=== PATIENT | female | born 1985 | race American Indian/Alaskan Native ===

== ENCOUNTER 2018-02-17 11:05 | Emergency (ER) | payer SELFPAY ==
[2018-02-17 11:16] VITALS: BP 106/68
[2018-02-17] MEDS ORDERED: NACL 0.9% 1000 ML 1,000 ML IV ONE (11:16)
[2018-02-17 11:59] LABS: Alanine Aminotransferase 11 units/L (7-56); Albumin 4.5 g/dL (3.9-5); BUN/Creatinine Ratio 13; Blood Urea Nitrogen 10 mg/dL (7-17); Calcium 9.9 mg/dL (8.4-10.2); Hemolysis Index 5
[2018-02-17 12:02] LABS: Basophils % (Auto) 0.5 % (0.0-1.8); Eosinophils # (Auto) 0.1 K/mm3 (0.0-0.4); Eosinophils % (Auto) 0.9 % (0.0-4.3); Hematocrit 43.9 % (30.3-42.9); Hemoglobin 14.6 gm/dl (10.1-14.3); Lymphocytes # (Auto) 1.5 K/mm3 (1.2-5.4); Lymphocytes % (Auto) 20.5 % (13.4-35.0); Mean Corpuscular HGB Conc 33 % (30-34); Mean Corpuscular Hemoglobin 28 pg (28-32); Mean Corpuscular Volume 84 fl (79-97); Monocytes # (Auto) 0.5 K/mm3 (0.0-0.8); Monocytes % (Auto) 7.4 % (0.0-7.3); Platelet Count 176 K/mm3 (140-440); Red Blood Count 5.22 M/mm3 (3.65-5.03); Red Cell Distribution Width 14.4 % (13.2-15.2)
[2018-02-17 12:23] LABS: Bacteria,Urine 1+ /HPF (Negative); Bilirubin,Urine NEG (Negative); Blood,Urine NEG (Negative); Color,Urine Yellow (Yellow); Mucus,Urine 3+ /HPF; Urobilinogen,Urine < 2.0 mg/dL (<2.0)
--- NOTE | 2018-02-17 14:05 | Emergency Department Report ---
ED Abdominal Pain HPI - General Chief Complaint: Abdominal Pain Stated Complaint: STOMACH PAIN/BOWEL PAIN Time Seen by Provider: 02/17/18 13:41 Source: patient Mode of arrival: Ambulatory Limitations: No Limitations - History of Present Illness Initial Comments: Patient reports lower abdominal and rectum pain with itching that started one week ago. She admits to having constipation in the past. MD Complaint: abdominal pain Onset/Timin -: week(s) Location: suprapubic Radiation: none Migration to: no migration Severity: moderate Severity scale (0 -10): 6 Quality: stabbing Consistency: intermittent Improves With: nothing Worsens With: bowel movement Context: other (none) Associated Symptoms: constipation. denies: nausea, vomiting, diarrhea, fever, chills, dysuria, hematemesis, hematochezia, melena, hematuria, anorexia, syncope Treatments Prior to Arrival: other (none) - Related Data LMP Date: 01/15/17 Previous Rx's Medication Instructions Recorded Last Taken Type Nitrofurantoin [place]/M-Cryst 100 mg PO Q12HR #14 capsule 02/17/18 Unknown Rx [Macrobid CAP] Vit-Fe Fumar-FA [ 1 tab PO QDAY #30 tablet 02/17/18 Unknown Rx Vitamin] Allergies Allergy/AdvReac Type Severity Reaction Status Date / Time No Known Allergies Allergy Unverified 02/17/18 11:15 ED Review of Systems ROS: Stated complaint: STOMACH PAIN/BOWEL PAIN Other details as noted in HPI Constitutional: denies: chills, fever Eyes: denies: eye pain, eye discharge, vision change ENT: denies: ear pain, throat pain Respiratory: denies: cough, shortness of breath, wheezing Cardiovascular: denies: chest pain, palpitations Endocrine: no symptoms reported Gastrointestinal: abdominal pain, constipation. denies: nausea, vomiting, diarrhea, hematemesis, melena Genitourinary: denies: urgency, dysuria, discharge Musculoskeletal: denies: back pain, joint swelling, arthralgia Skin: denies: rash, lesions Neurological: denies: headache, weakness, paresthesias Psychiatric: denies: anxiety, depression Hematological/Lymphatic: denies: easy bleeding, easy bruising ED Past Medical Hx - Past Medical History Previous Medical History?: No - Surgical History Past Surgical History?: No - Social History Smoking Status: Never Smoker Substance Use Type: None - Medications Home Medications: Home Medications Medication Instructions Recorded Confirmed Last Taken Type Nitrofurantoin [place]/M-Cryst 100 mg PO Q12HR #14 capsule 02/17/18 Unknown Rx [Macrobid CAP] Vit-Fe Fumar-FA [ 1 tab PO QDAY #30 tablet 02/17/18 Unknown Rx Vitamin] ED Physical Exam - General Limitations: No Limitations General appearance: alert, in no apparent distress - ENT ENT exam: Present: normal exam, normal orophraynx, mucous membranes moist. Absent: mucous membranes dry - Respiratory Respiratory exam: Present: normal lung sounds bilaterally. Absent: respiratory distress, wheezes, rales, rhonchi, stridor, chest wall tenderness, accessory muscle use, decreased breath sounds, prolonged expiratory - Cardiovascular Cardiovascular Exam: Present: regular rate, normal rhythm, normal heart sounds. Absent: systolic murmur, diastolic murmur, rubs, gallop - GI/Abdominal GI/Abdominal exam: Present: soft, tenderness (suprapubic), normal bowel sounds. Absent: distended, guarding, rebound, rigid, diminished bowel sounds, hyperactive bowel sounds, hypoactive bowel sounds, organomegaly, mass, bruit, pulsatile mass, hernia - Extremities Exam Extremities exam: Present: normal inspection, full ROM, normal capillary refill. Absent: tenderness, pedal edema, joint swelling - Back Exam Back exam: Present: normal inspection, full ROM. Absent: tenderness, CVA tenderness (R), CVA tenderness (L), muscle spasm, paraspinal tenderness, vertebral tenderness - Neurological Exam Neurological exam: Present: alert, oriented X3, CN II-XII intact, normal gait, reflexes normal. Absent: motor sensory deficit - Psychiatric Psychiatric exam: Present: normal affect, normal mood - Skin Skin exam: Present: warm, dry, intact, normal color. Absent: rash ED Course Vital Signs 02/17/18 02/17/18 11:12 13:48 Temperature 98.2 F Pulse Rate 83 Respiratory 16 16 Rate Blood Pressure 106/68 O2 Sat by Pulse 100 Oximetry - Reevaluation(s) Reevaluation #1: 02/17/18 14:08 laboratory and radiology studies ordered ED Medical Decision Making - Lab Data Result diagrams: 02/17/18 11:28 02/17/18 11:28 Lab Results 02/17/18 02/17/1802/17/18 Range/Units 11:28 11:28 11:28 WBC 7.4 (4.5-11.0) K/mm3 RBC 5.22 H (3.65-5.03) M/mm3 Hgb 14.6 H (10.1-14.3) gm/dl Hct 43.9 H (30.3-42.9) % MCV 84 (79-97) fl MCH 28 (28-32) pg MCHC 33 (30-34) % RDW 14.4 (13.2-15.2) % Plt Count 176 (140-440) K/mm3 Lymph % (Auto) 20.5 (13.4-35.0) % [place] % (Auto) 7.4 H (0.0-7.3) % Eos % (Auto) 0.9 (0.0-4.3) % Baso % (Auto) 0.5 (0.0-1.8) % Lymph # 1.5 (1.2-5.4) K/mm3 [place] # 0.5 (0.0-0.8) K/mm3 Eos # 0.1 (0.0-0.4) K/mm3 Baso # 0.0 (0.0-0.1) K/mm3 Seg Neutrophils % 70.7 H (40.0-70.0) % Seg Neutrophils # 5.2 (1.8-7.7) K/mm3 Sodium 139 (137-145) mmol/L Potassium 3.7 (3.6-5.0) mmol/L Chloride 99.1 (98-107) mmol/L Carbon Dioxide 27 (22-30) mmol/L Anion Gap 17 mmol/L BUN 10 (7-17) mg/dL Creatinine 0.8 (0.7-1.2) mg/dL Estimated GFR > 60 ml/min BUN/Creatinine Ratio 13 % Glucose 102 H (65-100) mg/dL Calcium 9.9 (8.4-10.2) mg/dL Total Bilirubin 0.50 (0.1-1.2) mg/dL AST 17 (5-40) units/L ALT 11 (7-56) units/L Alkaline Phosphatase 38 (35-129) units/L Total Protein 7.8 (6.3-8.2) g/dL Albumin 4.5 (3.9-5) g/dL Albumin/Globulin Ratio 1.4 % HCG, Qual Positive (Negative) HCG, Quant (0-4) mIU/mL Urine Color (Yellow) Urine Turbidity (Clear) Urine pH (5.0-7.0) Ur Specific [place] (1.003-1.030) Urine Protein (Negative) mg/dL Urine Glucose (UA) (Negative) mg/dL Urine Ketones (Negative) mg/dL Urine Blood (Negative) Urine Nitrite (Negative) Urine Bilirubin (Negative) Urine Urobilinogen (<2.0) mg/dL Ur Leukocyte Esterase (Negative) Urine WBC (Auto) (0.0-6.0) /HPF Urine RBC (Auto) (0.0-6.0) /HPF U Epithel Cells (Auto) (0-13.0) /HPF Urine Bacteria (Auto) (Negative) /HPF Urine Mucus /HPF 02/17/18 02/17/18 Range/Units 12:05 15:47 WBC (4.5-11.0) K/mm3 RBC (3.65-5.03) M/mm3 Hgb (10.1-14.3) gm/dl Hct (30.3-42.9) % MCV (79-97) fl MCH (28-32) pg MCHC (30-34) % RDW (13.2-15.2) % Plt Count (140-440) K/mm3 Lymph % (Auto) (13.4-35.0) % [place]ner % (Auto) (0.0-7.3) % Eos % (Auto) (0.0-4.3) % Baso % (Auto) (0.0-1.8) % Lymph # (1.2-5.4) K/mm3 [place] # (0.0-0.8) K/mm3 Eos # (0.0-0.4) K/mm3 Baso # (0.0-0.1) K/mm3 Seg Neutrophils % (40.0-70.0) % Seg Neutrophils # (1.8-7.7) K/mm3 Sodium (137-145) mmol/L Potassium (3.6-5.0) mmol/L Chloride (98-107) mmol/L Carbon Dioxide (22-30) mmol/L Anion Gap mmol/L BUN (7-17) mg/dL Creatinine (0.7-1.2) mg/dL Estimated GFR ml/min BUN/Creatinine Ratio % Glucose (65-100) mg/dL Calcium (8.4-10.2) mg/dL Total Bilirubin (0.1-1.2) mg/dL AST (5-40) units/L ALT (7-56) units/L Alkaline Phosphatase (35-129) units/L Total Protein (6.3-8.2) g/dL Albumin (3.9-5) g/dL Albumin/Globulin Ratio % HCG, Qual (Negative) HCG, Quant 11901 H (0-4) mIU/mL Urine Color Yellow (Yellow) Urine Turbidity Cloudy (Clear) Urine pH 7.0 (5.0-7.0) Ur Specific [place] 1.026 (1.003-1.030) Urine Protein 30 mg/dl (Negative) mg/dL Urine Glucose (UA) Neg (Negative) mg/dL Urine Ketones Neg (Negative) mg/dL Urine Blood Neg (Negative) Urine Nitrite Neg (Negative) Urine Bilirubin Neg (Negative) Urine Urobilinogen < 2.0 (<2.0) mg/dL Ur Leukocyte Esterase Sm (Negative) Urine WBC (Auto) 11.0 H (0.0-6.0) /HPF Urine RBC (Auto) 7.0 (0.0-6.0) /HPF U Epithel Cells (Auto) 28.0 H (0-13.0) /HPF Urine Bacteria (Auto) 1+ (Negative) /HPF Urine Mucus 3+ /HPF - Radiology Data Radiology results: image reviewed HISTORY: Positive test, pelvic pain. COMPARISON: No prior studies are available for comparison. FINDINGS: The uterus measures 10.3 centimeters x 5.3 centimeters x 6.3 centimeters. The myometrium appears homogeneous. There are no focal uterine masses. There is thickening of the endometrial echo complex. There is a small gestational sac visible in the uterine fundus. There is no definite pole. The mean gestational sac diameter is 1.13 centimeters. This indicates a menstrual age of 5 weeks 6 days. The estimated date of confinement is 10/14/2018. The right ovary appears normal in size and has normal color flow. The left ovary appears normal in size and has normal color flow. There are 2 cysts in the left ovary. The largest cyst has a maximum diameter of 2.5 centimeters. IMPRESSION: Early intrauterine gestational sac. No definite pole identified. HISTORY: Abdominal pain. COMPARISON: No prior studies are available for comparison. FINDINGS: The liver has uniform echogenicity. There are no focal masses. There is no biliary dilatation. The common hepatic duct measures 1.1 millimeters. The gallbladder is adequately distended with normal wall thickness. There are no gallstones. The pancreas appears normal. Both kidneys appear normal in size and have normal echogenicity. There is no hydronephrosis. The spleen is unremarkable. The proximal portion of the abdominal aorta has a normal caliber. The more distal portions were not visualized. The inferior vena cava is patent. The portal vein is patent by color flow imaging. IMPRESSION: Normal study. - Medical Decision Making During the course of ED, laboratory and imaging studies were ordered based on physical examination. Positive test, was confirmed by pelvic ultrasound early intrauterine gestational sac and quantitative 57923. No definite pole identified. Urinalysis revealed an elevated WBC with no nitrates present. Patient was sent home with prescriptions for Macrobid and vitamins, instructed to follow up with the selective Business Intelligence Manager for repeated ultrasound in approximately two weeks, she verbalized understanding - Differential Diagnosis IUP @ 5weeks, UTI Critical care attestation.: If time is entered above; I have spent that time in minutes in the direct care of this critically ill patient, excluding procedure time. ED Disposition Clinical Impression: Qualifiers: Weeks of gestation: less than 8 weeks Qualified Code(s): Z3A.01 - Less than 8 weeks gestation of Urinary tract infection Qualifiers: Urinary tract infection type: site unspecified Hematuria presence: without hematuria Qualified Code(s): N39.0 - Urinary tract infection, site not specified Disposition: DC-01 TO HOME OR SELFCARE Is pt being admited?: No Does the pt Need Aspirin: No Condition: Stable Instructions: (ED), Urinary Tract Infection in Women (ED) Additional Instructions: Take medication as directed. Follow up with the selective referral given at discharge. Return back to the ED for worsening symptoms or concerns Prescriptions: Nitrofurantoin [place]/M-Cryst [Macrobid CAP] 100 mg PO Q12HR #14 capsule Vit-Fe Fumar-FA [ Vitamin] 1 tab PO QDAY #30 tablet Referrals: PRIMARY CARE, [Primary Care Provider] - 3-5 Days TADEO DAY MD [Referring] - 3-5 Days YULIA DAY MD [Staff Physician] - 3-5 Days Forms: Work/School Release Form(ED) Time of Disposition: 17:02
--- NOTE | 2018-02-17 16:41 | Ultrasound Report ---
FINAL REPORT PROCEDURE: Abdominal ultrasound. TECHNIQUE: Real-time sonography in multiple planes of the abdomen was performed with image documentation. CPT 95104 HISTORY: Abdominal pain. COMPARISON: No prior studies are available for comparison. FINDINGS: The liver has uniform echogenicity. There are no focal masses. There is no biliary dilatation. The common hepatic duct measures 1.1 millimeters. The gallbladder is adequately distended with normal wall thickness. There are no gallstones. The pancreas appears normal. Both kidneys appear normal in size and have normal echogenicity. There is no hydronephrosis. The spleen is unremarkable. The proximal portion of the abdominal aorta has a normal caliber. The more distal portions were not visualized. The inferior vena cava is patent. The portal vein is patent by color flow imaging. IMPRESSION: Normal study.
--- NOTE | 2018-02-17 16:48 | Ultrasound Report ---
FINAL REPORT PROCEDURE: Transvaginal obstetrical ultrasound. TECHNIQUE: Real-time transvaginal sonography of the uterus, placenta, amniotic fluid, adnexa, and fetus was performed with image documentation. Measurements were obtained to determine age/size. M-mode Doppler was used to document heartbeat. CPT 57845 HISTORY: Positive test, pelvic pain. COMPARISON: No prior studies are available for comparison. FINDINGS: The uterus measures 10.3 centimeters x 5.3 centimeters x 6.3 centimeters. The myometrium appears homogeneous. There are no focal uterine masses. There is thickening of the endometrial echo complex. There is a small gestational sac visible in the uterine fundus. There is no definite pole. The mean gestational sac diameter is 1.13 centimeters. This indicates a menstrual age of 5 weeks 6 days. The estimated date of confinement is 10/14/2018. The right ovary appears normal in size and has normal color flow. The left ovary appears normal in size and has normal color flow. There are 2 cysts in the left ovary. The largest cyst has a maximum diameter of 2.5 centimeters. IMPRESSION: Early intrauterine gestational sac. No definite pole identified.
--- NOTE | 2018-02-17 16:48 | Ultrasound Report ---
FINAL REPORT PROCEDURE: Transabdominal obstetrical ultrasound. TECHNIQUE: Real-time transabdominal sonography of the uterus, placenta, amniotic fluid, adnexa, and fetus was performed with image documentation. Measurements were obtained to determine age/size. M-mode Doppler was used to document heartbeat. CPT 03122 HISTORY: Positive test, pelvic pain. COMPARISON: No prior studies are available for comparison. FINDINGS: The uterus measures 10.3 centimeters x 5.3 centimeters x 6.3 centimeters. The myometrium appears uniform. The endometrial echo complex is unremarkable. There is a small intrauterine gestational sac. A pole is not definitely visualized. Neither ovary is identified. Further evaluation with a transvaginal study would be useful. IMPRESSION: Early intrauterine gestational sac.
== END 2018-02-17 17:18 | disposition home or self-care (01) ==
LOC: ED 11:05
DX: O23.41 Unspecified infection of urinary tract in pregnancy, first trimester (principal); Z3A.01 Less than 8 weeks gestation of pregnancy
CPT/HCPCS: 36415; 76700; 76801; 76817; 80053; 81001; 84702; 84703; 85025

== ENCOUNTER 2018-10-04 14:43 | Outpatient (CLI) | payer MEDICAID ==
[2018-10-04 14:57] VITALS: BP 103/65
[2018-10-04 17:12] LABS: Bilirubin,Urine NEG (Negative); Blood,Urine NEG (Negative); Color,Urine Yellow (Yellow); Mucus,Urine FEW /HPF; Protein,Urine <15 mg/dL mg/dL (Negative); Urobilinogen,Urine < 2.0 mg/dL (<2.0)
== END 2018-10-04 20:15 | disposition home or self-care (01) ==
LOC: TRG 14:43
PROVIDERS: ATTEND Obstetrics & Gynecology
DX: O47.1 False labor at or after 37 completed weeks of gestation (principal); Z3A.38 38 weeks gestation of pregnancy
CPT/HCPCS: 59025; 81001

== ENCOUNTER 2018-10-09 00:26 | Inpatient (IN) | payer MEDICAID ==
[2018-10-09] MEDS ORDERED: PITOCin/NS 20 UNIT/1000ML DRIP 20,000 MILLIUNITS/1,000 ML BAG IV ONE (01:56)
--- NOTE | 2018-10-09 02:16 | History and Physical Report ---
History of Present Illness Date of examination: 10/09/18 Date of admission: 10/09/18 00:33 Chief complaint: contractions History of present illness: 33y/o @ 39+3 weeks presents in active labor with gross rupture membranes. The patient initiated her care in the first trimester. Her course has been uncomplicated. The patient is GBS negative. Past History Past Medical History: no pertinent history Past Surgical History: no surgical history Social history: single - Obstetrical History Expected Date of Delivery: 10/13/18 Actual Gestation: 39 Week(s) 3 Day(s) : 2 Para: 1 Hx # Term Pregnancies: 1 Number of Pregnancies: 0 Spontaneous Abortions: 0 Induced : 0 Number of Living Children: 1 Medications and Allergies Allergies Allergy/AdvReac Type Severity Reaction Status Date / Time No Known Allergies Allergy Verified 04/11/18 15:38 Home Medications Medication Instructions Recorded Confirmed Last Taken Type Nitrofurantoin [place]/M-Cryst 100 mg PO Q12HR #14 capsule 02/17/18 Unknown Rx [Macrobid CAP] Vit-Fe Fumar-FA [ 1 tab PO QDAY #30 tablet 02/17/18 Unknown Rx Vitamin] Review of Systems All systems: negative Genitourinary: leakage of fluid, contractions - Vital Signs Vital signs: Vital Signs Pulse BP 80 102/53 10/09/18 01:03 10/09/18 01:03 Temp Pulse Resp BP Pulse Ox 85 113/59 10/09/18 02:06 10/09/18 02:06 - Physical Exam Breasts: Positive: deferred Cardiovascular: Regular rate Lungs: Positive: Clear to auscultation Results All other labs normal. Assessment and Plan - Patient Problems (1) Spontaneous rupture of amniotic membranes Current Visit: Yes Status: Acute Plan to address problem: admit to L&D (2) Active labor at term Current Visit: Yes Status: Acute
[2018-10-09] MEDS ORDERED: BENADRYL PO PRN (02:43)
[2018-10-09] MEDS ORDERED: PHENERGAN PO PRN (02:43)
[2018-10-09] MEDS ORDERED: MILK OF MAGNESIA PO PRN (02:43)
[2018-10-09] MEDS ORDERED: TUCKS PAD TP PRN (02:43)
[2018-10-09] MEDS ORDERED: DULCOLAX PR PRN (02:43)
[2018-10-09] MEDS ORDERED: NORCO 5/325 PO PRN (02:43)
[2018-10-09] MEDS ORDERED: PHENERGAN PR PRN (02:43)
[2018-10-09] MEDS ORDERED: ZOFRAN IV PRN (02:43)
[2018-10-09] MEDS ORDERED: LANSINOH TP PRN (02:43)
[2018-10-09] MEDS ORDERED: TYLENOL PO PRN (02:43)
--- NOTE | 2018-10-09 02:43 | Procedure Note ---
OB Delivery Note - Delivery Date of Delivery: 10/09/18 Surgeon: ISABELLA CHRISTINA Estimated blood loss: 100cc - Vaginal Delivery presentation: vertex Delivery position: OA Delivery monitor: external FHT Route of delivery: Delivery placenta: spontaneous Delivery cord: 3 umbilical vessels Episiotomy: none Delivery laceration: none Anesthesia: epidural Delivery comments: The patient progressed to complete complete +2+ to deliver a liveborn male with Apgars of 8 and 9 weight 5 lbs. 15 oz. After delivery of the head and shoulders delivered without difficulty. The infant was then bulb suctioned and stimulated. The cord was clamped and cut 2 and the was placed on the patient's abdomen. The placenta delivered spontaneously intact with a three-vessel cord. No lacerations were noted. Estimated blood loss of 100 mL - A at 1 minute: 8 at 5 minutes: 9 Infant Gender: Male (weight 5 lbs. 15 oz.)
[2018-10-09] MEDS ORDERED: SODIUM CHLORIDE FLUSH SYRINGE 10 ML IV NR (03:00)
[2018-10-09] MEDS: IBUPROFEN PO SCH ×3 (04:01→17:06)
[2018-10-09 04:08] LABS: Hematocrit 37.9 % (30.3-42.9); Hemoglobin 12.2 gm/dl (10.1-14.3)
[2018-10-09] MEDS ORDERED: PITOCin/NS 20 UNIT/1000ML DRIP 20 UNITS/1,000 ML BAG IV SCH (06:00)
[2018-10-09 13:12] LABS: Hematocrit 35.5 % (30.3-42.9); Hemoglobin 11.5 gm/dl (10.1-14.3)
[2018-10-10] MEDS: IBUPROFEN PO SCH ×3 (07:26→23:21)
--- NOTE | 2018-10-10 08:28 | Progress Note ---
Assessment and Plan A: PPD#1 s/p at term P: Routine care. Anticipate discharge tomorrow. Subjective - Subjective Date of service: 10/10/18 Principal diagnosis: s/p at term Interval history: No overnight events. Patient reports: appetite normal, voiding normally, pain well controlled, ambulating normally [place]: doing well Objective - Vital Signs Latest vital signs: Vital Signs Temp Pulse Resp BP BP Pulse Ox 10/10/18 07:26 14 10/10/18 00:54 98.6 F 75 18 101/58 99 10/09/18 17:06 14 10/09/18 16:38 98.9 F 76 20 101/55 98 10/09/18 12:11 98.0 F 74 20 97/49 97 10/09/18 08:35 98.4 F 71 20 96/54 Intake and Output 10/09/18 10/10/18 10/10/18 22:59 06:59 14:59 Intake Total 320 300 Balance 320 300 Intake: Oral 320 Intake, Free Water 300 Other: Total, Intake Amount 320 # Voids Void 1 - Exam Breasts: Present: deferred Cardiovascular: Present: Regular rate Lungs: Present: Clear to auscultation Abdomen: Present: soft Uterus: Present: fundal height at umbilicus Extremities: Present: edema (trace)
--- NOTE | 2018-10-10 08:29 | Discharge Summary ---
Providers - Providers Date of Admission: 10/09/18 00:33 Date of discharge: 10/11/18 Attending physician: ISABELLA CHRISTNIA Primary care physician: ISABELLA CHRISTINA Hospitalization Reason for admission: rupture of membranes Delivery: Procedure details: Please see delivery note. Episiotomy: none Laceration: none Other procedures: none complications: none Discharge diagnosis: IUP at term delivered Mathews baby: male Hospital course: The patient was admitted with ruptured membranes in active labor and went on to have a spontaneous vaginal delivery which she tolerated well. Her course is uncomplicated and she met discharge criteria by day #2. She'll follow-up in the office in 4 weeks. Condition at discharge: Stable Disposition: DC-01 TO HOME OR SELFCARE - Discharge Diagnoses (1) Term of male Status: Acute (2) Active labor at term Status: Acute (3) Spontaneous rupture of amniotic membranes Status: Acute Plan - Discharge Medications Prescriptions: Ferrous Sulfate [Feosol 325 MG tab] 325 mg PO BID #30 tablet Ibuprofen [Motrin] 600 mg PO Q8H PRN #30 tablet PRN Reason: Pain oxyCODONE /ACETAMINOPHEN [Percocet 5/325] 1 tab PO Q6HR PRN #30 tablet PRN Reason: Pain - Provider Discharge Summary Activity: routine, no sex for 6 weeks, no heavy lifting 4 weeks, no strenuous exercise Diet: routine Instructions: routine Additional instructions: [] Smoking cessation referral if applicable(refer to patient education folder for contact #) [] Refer to [facility]'s [facility] Booklet Call your doctor immediately for: * Fever > 100.5 * Heavy vaginal bleeding ( >1 pad per hour) * Severe persistent headache * Shortness of breath * Reddened, hot, painful area to leg or breast * Drainage or odor from incision. * Keep incision clean and dry at all times and follow doctor's instructions regarding bathing/showering - Follow up plan Follow up: ISABELLA CHRISTINA MD [Primary Care Provider] - 11/10/18 (Please call to schedule your appt )
[2018-10-11] MEDS: IBUPROFEN PO SCH ×2 (05:54→12:33)
[2018-10-11 16:04] VITALS: BP 101/66
== END 2018-10-11 16:25 | disposition home or self-care (01) | DRG 775 ==
LOC: TRG 00:26 → LD 00:33 → OB 05:22
PROVIDERS: ADMIT Obstetrics & Gynecology; ATTEND Obstetrics & Gynecology
PROC: 10E0XZZ Delivery of Products of Conception, External Approach (ICD-10-PCS; principal; 2018-10-09)
PROC: 3E0R3BZ Introduction of Anesthetic Agent into Spinal Canal, Percutaneous Approach (ICD-10-PCS; 2018-10-09)
PROC: 00HU33Z Insertion of Infusion Device into Spinal Canal, Percutaneous Approach (ICD-10-PCS; 2018-10-09)
DX: O80 Encounter for full-term uncomplicated delivery (principal); Z3A.39 39 weeks gestation of pregnancy; Z37.0 Single live birth
CPT/HCPCS: 36415; 85014; 85018; G0378; J2590

== ENCOUNTER 2020-08-04 10:21 | Emergency (ER) | payer MEDICAID ==
--- NOTE | 2020-08-04 10:29 | Event Note ---
ED Screening Note ED Screening Note: LMP 04/22 vag bleeding; known preg passing large clots ob told her to come to ER This initial assessment/diagnostic orders/clinical plan/treatment(s) is/are subject to change based on patients health status, clinical progression and re- assessment by fellow clinical providers in the ED. Further treatment and workup at subsequent clinical providers discretion. Patient/guardian urged not to elope from the ED as their condition may be serious if not clinically assessed and managed. Initial orders include: teresa ab
[2020-08-04 11:10] LABS: Basophils % (Auto) 0.4 % (0.0-1.8); Eosinophils # (Auto) 0.1 K/mm3 (0.0-0.4); Eosinophils % (Auto) 1.1 % (0.0-4.3); Hematocrit 35.2 % (30.3-42.9); Hemoglobin 11.6 gm/dl (10.1-14.3); Lymphocytes % (Auto) 18.7 % (13.4-35.0); Mean Corpuscular HGB Conc 33 % (30-34); Mean Corpuscular Volume 87 fl (79-97); Monocytes # (Auto) 0.8 K/mm3 (0.0-0.8); Monocytes % (Auto) 7.5 % (0.0-7.3); Platelet Count 199 K/mm3 (140-440); Red Blood Count 4.04 M/mm3 (3.65-5.03); Red Cell Distribution Width 13.5 % (13.2-15.2)
[2020-08-04 11:37] LABS: Blood Urea Nitrogen 10 mg/dL (7-17); Calcium 8.6 mg/dL (8.4-10.2); Hemolysis Index 1
[2020-08-04] MEDS ORDERED: POTASSIUM CHLORIDE ER 20 MEQ TAB PO ONE (11:38)
[2020-08-04] MEDS ORDERED: traMADol 50 MG TAB PO ONE (11:39)
[2020-08-04 11:45] LABS: BUN/Creatinine Ratio 14
[2020-08-04 12:15] LABS: Mucus,Urine 1+ /HPF; RBC,Urine > 182.0 /HPF (0.0-6.0)
[2020-08-04 12:16] LABS: Color,Urine Red (Yellow); PH,Urine TNR (5.0-7.0)
[2020-08-04 12:17] LABS: Ictotest,Urine TNR (Negative); Protein,Urine TNR mg/dL (Negative); Urobilinogen,Urine TNR mg/dL (<2.0)
--- NOTE | 2020-08-04 13:03 | Ultrasound Report ---
US OB <= 14 weeks fetus, US OB transvaginal INDICATION / CLINICAL INFORMATION: Vaginal bleeding. COMPARISON: None available. FINDINGS: No evidence of normal intrauterine . Endometrial canal is thickened in the lower uterine seg ment and cervix, measuring as much as 3.2 cm diameter. Endometrial stripe in the uterine fundus measu res only 7 mm. Both ovaries are normal. No abnormal adnexal mass or fluid. IMPRESSION: 1. Findings suggest demise and incomplete . Signer Name: Blaine Rangel MD Signed: 08/04/2020 12:58 PM Workstation Name: [id number]
--- NOTE | 2020-08-04 16:31 | Emergency Department Report ---
ED HPI - General Chief complaint: Vaginal Bleeding Stated complaint: VAGINAL BLEED Time Seen by Provider: 08/04/20 10:26 Source: patient Mode of arrival: Wheelchair Limitations: No Limitations - History of Present Illness Initial comments: 35-year-old female, 13 weeks , presents to ED with vaginal bleeding. Patient states 3 days ago she began to have light vaginal bleeding. 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 Ultrasound was done at that time which showed an IUP, however there were no heart tones detected. Patient was advised to come to the emergency room if she began to have heavier vaginal bleeding. Patient states last night, the bleeding became heavier, with clots, and cramping. [facility], Dr. Elaina POTTS Complaint: abdominal pain, vaginal bleeding -: days(s) (3) Location: pelvis Radiation: none Severity: severe Quality: cramping Consistency: constant Improves with: none Worsens with: none Associated symptoms: vaginal bleeding, abdominal pain Vaginal bleeding: heavy, clots :: Yes Number of weeks : 13 Pre- care: followed by OB - Related Data Previous Rx's Medication Instructions Recorded Last Taken Type Nitrofurantoin [place]/M-Cryst 100 mg PO Q12HR #14 capsule 02/17/18 Unknown Rx [Macrobid CAP] Vit-Fe Fumar-FA [ 1 tab PO QDAY #30 tablet 02/17/18 Unknown Rx Vitamin] Ferrous Sulfate [Feosol 325 MG tab] 325 mg PO BID #30 tablet 10/09/18 Unknown Rx Ibuprofen [Motrin] 600 mg PO Q8H PRN #30 tablet 10/09/18 Unknown Rx oxyCODONE /ACETAMINOPHEN [Percocet 1 tab PO Q6HR PRN #30 tablet 10/09/18 Unknown Rx 5/325] Allergies Allergy/AdvReac Type Severity Reaction Status Date / Time No Known Allergies Allergy Verified 04/11/18 15:38 ED Review of Systems ROS: Stated complaint: VAGINAL BLEED Other details as noted in HPI Comment: All other systems reviewed and negative Gastrointestinal: abdominal pain Genitourinary: other (Reports vaginal bleeding) ED Past Medical Hx - Past Medical History Hx Hypertension: No Hx Congestive Heart Failure: No Hx Diabetes: No Hx Deep Vein Thrombosis: No Hx Renal Disease: No Hx Sickle Cell Disease: No Hx Seizures: No Hx Asthma: No Hx COPD: No Hx HIV: No - Surgical History Past Surgical History?: No - Social History Smoking Status: Never Smoker - Medications Home Medications: Home Medications Medication Instructions Recorded Confirmed Last Taken Type Nitrofurantoin [place]/M-Cryst 100 mg PO Q12HR #14 capsule 02/17/18 10/11/18 Unknown Rx [Macrobid CAP] Vit-Fe Fumar-FA [ 1 tab PO QDAY #30 tablet 02/17/18 10/11/18 Unknown Rx Vitamin] Ferrous Sulfate [Feosol 325 MG tab] 325 mg PO BID #30 tablet 10/09/18 Unknown Rx Ibuprofen [Motrin] 600 mg PO Q8H PRN #30 tablet 10/09/18 Unknown Rx oxyCODONE /ACETAMINOPHEN [Percocet 1 tab PO Q6HR PRN #30 tablet 10/09/18 Unknown Rx 5/325] ED Physical Exam - General Limitations: No Limitations General appearance: alert, in no apparent distress - Head Head exam: Present: atraumatic, normocephalic - Eye Eye exam: Present: normal appearance, EOMI - ENT ENT exam: Present: mucous membranes moist - Neck Neck exam: Present: normal inspection - Respiratory Respiratory exam: Present: normal lung sounds bilaterally. Absent: respiratory distress - Cardiovascular Cardiovascular Exam: Present: regular rate, normal rhythm - GI/Abdominal GI/Abdominal exam: Present: soft, tenderness (Mild suprapubic). Absent: distended - Extremities Exam Extremities exam: Present: normal inspection - Neurological Exam Neurological exam: Present: alert, oriented X3 - Psychiatric Psychiatric exam: Present: normal affect, normal mood - Skin Skin exam: Present: warm, dry, intact, normal color ED Course Vital Signs 08/04/20 08/04/20 08/04/20 10:27 10:28 15:33 Temperature 98.6 F 98.1 F Pulse Rate 112 H 87 Respiratory 18 13 Rate Blood Pressure 151/77 Blood Pressure 100/62 [Left] O2 Sat by Pulse 99 100 Oximetry 08/04/20 08/04/20 16:49 18:51 Temperature Pulse Rate 85 84 Respiratory 16 15 Rate Blood Pressure Blood Pressure 103/57 103/64 [Left] O2 Sat by Pulse 100 100 Oximetry - Consultations Consultation #1: 08/04/20 17:12 Discussed case w/ Dr Rader, on-call OB. States pt needs to f/u in office tomorrow. ED Medical Decision Making - Lab Data Result diagrams: 08/04/20 10:37 08/04/20 10:37 - Radiology Data Radiology results: report reviewed, image reviewed - Medical Decision Making 35-year-old female seen at the doctor's office on yesterday and diagnosed with demise. Patient began having heavy vaginal bleeding and cramping last night. Ultrasound here shows no IUP. Hemoglobin is 11.6. Vital signs are stable. Blood pressure low normal, however body habitus is small and patient is not tachycardic. Patient advised to follow-up with her [employer]ES[employer] PERFOR[employer] OPERATOR in office tomorrow. Return precautions given. Will discharge at this time. - Differential Diagnosis Miscarriage Critical care attestation.: If time is entered above; I have spent that time in minutes in the direct care of this critically ill patient, excluding procedure time. ED Disposition Clinical Impression: Spontaneous miscarriage Disposition: DC-01 TO HOME OR SELFCARE Is pt being admited?: No Condition: Stable Instructions: Miscarriage, [id number] Additional Instructions: Follow up with your TYPESETTER PERFORATOR OPERATOR tomorrow. Referrals: PRIMARY CARE, [Primary Care Provider] - 24 Hours Time of Disposition: 18:44
[2020-08-04] MEDS ORDERED: SODIUM CHLORIDE 0.9% 1000 ML 1,000 ML IV ONE (16:48)
[2020-08-04 18:52] VITALS: BP 103/64
== END 2020-08-04 18:53 | disposition home or self-care (01) ==
LOC: ED 10:21
DX: O03.9 Complete or unspecified spontaneous abortion without complication (principal); Z3A.13 13 weeks gestation of pregnancy; Z79.1 Long term (current) use of non-steroidal anti-inflammatories (NSAID); Z79.899 Other long term (current) drug therapy
CPT/HCPCS: 36415; 76801; 76817; 80048; 81001; 84702; 85025; 86900; 86901; 87086; 96360; 96361

== ENCOUNTER 2020-08-14 19:24 | Emergency (ER) | payer SELFPAY ==
[2020-08-14 19:47] VITALS: BP 124/83
[2020-08-14 20:39] LABS: Basophils % (Auto) 0.4 % (0.0-1.8); Eosinophils # (Auto) 0.1 K/mm3 (0.0-0.4); Eosinophils % (Auto) 0.8 % (0.0-4.3); Hematocrit 28.5 % (30.3-42.9); Hemoglobin 9.5 gm/dl (10.1-14.3); Lymphocytes % (Auto) 11.6 % (13.4-35.0); Mean Corpuscular HGB Conc 33 % (30-34); Mean Corpuscular Volume 85 fl (79-97); Monocytes # (Auto) 0.7 K/mm3 (0.0-0.8); Monocytes % (Auto) 8.5 % (0.0-7.3); Platelet Count 275 K/mm3 (140-440); Red Blood Count 3.35 M/mm3 (3.65-5.03); Red Cell Distribution Width 13.6 % (13.2-15.2)
--- NOTE | 2020-08-14 20:59 | XRay Report ---
XR chest routine 2V INDICATION / CLINICAL INFORMATION: chest pain. COMPARISON: None available. FINDINGS: SUPPORT DEVICES: None. HEART /PULMONARY VASCULATURE: No significant abnormality. LUNGS / PLEURA: No significant pulmonary or pleural abnormality. No pneumothorax. ADDITIONAL FINDINGS: No significant additional findings. IMPRESSION: 1. No acute findings. Signer Name: Zoran Moreno MD Signed: 08/14/2020 8:55 PM Workstation Name: [id number]
[2020-08-14 21:04] LABS: Alanine Aminotransferase 7 units/L (7-56); Albumin 4.3 g/dL (3.9-5); BUN/Creatinine Ratio 16; Blood Urea Nitrogen 13 mg/dL (7-17); Hemolysis Index 0
--- NOTE | 2020-08-14 21:33 | Emergency Department Report ---
ED General Adult HPI - General Chief complaint: Dizziness Stated complaint: CHEST PAIN, LIGHTHEADED, DIZZY, BLEEDING HEAVY Time Seen by Provider: 08/14/20 20:54 Source: patient Mode of arrival: Ambulatory Limitations: No Limitations - History of Present Illness Initial comments: 35-year-old -[place] female presents to the emergency room complaining of dizziness chest discomfort feeling hot and heavy bleeding. Patient was seen here on 08/04/2020 and was determined that she had a demise and incomplete . Patient states since then she has had heavy bleeding. Patient states that she saw an [facility]PERINTENDENT CEMETERY last Saturday. She is reports she has had some midsternal discomfort mild sharp pain. She had nausea when she was getting overheated but that has resolved. Patient is 3 para 2 no past medical history. Currently taking no medications. Patient states that she was having increased palpitation. -: This afternoon Location: chest Radiation: non-radiation Severity scale (0 -10): 0 Consistency: now resolved Improves with: none Worsens with: none Associated Symptoms: nausea/vomiting. denies: headaches, loss of appetite, shor tness of breath, weakness Treatments Prior to Arrival: none - Related Data Previous Rx's Medication Instructions Recorded Last Taken Type Nitrofurantoin [place]/M-Cryst 100 mg PO Q12HR #14 capsule 02/17/18 Unknown Rx [Macrobid CAP] Vit-Fe Fumar-FA [ 1 tab PO QDAY #30 tablet 02/17/18 Unknown Rx Vitamin] Ibuprofen [Motrin] 600 mg PO Q8H PRN #30 tablet 10/09/18 Unknown Rx oxyCODONE /ACETAMINOPHEN [Percocet 1 tab PO Q6HR PRN #30 tablet 10/09/18 Unknown Rx 5/325] Docusate Sodium [Colace] 100 mg PO BID PRN #30 capsule 08/14/20 Unknown Rx Ferrous Sulfate [Feosol 325 MG tab] 325 mg PO BID #30 tablet 08/14/20 Unknown Rx Allergies Allergy/AdvReac Type Severity Reaction Status Date / Time No Known Allergies Allergy Verified 04/11/18 15:38 ED Review of Systems ROS: Stated complaint: CHEST PAIN, LIGHTHEADED, DIZZY, BLEEDING HEAVY Other details as noted in HPI Comment: All other systems reviewed and negative ED Past Medical Hx - Past Medical History Previous Medical History?: Yes Hx Hypertension: No Hx Congestive Heart Failure: No Hx Diabetes: No Hx Deep Vein Thrombosis: No Hx Renal Disease: No Hx Sickle Cell Disease: No Hx Seizures: No Hx Asthma: No Hx COPD: No Hx HIV: No Additional medical history: Miscarriage at 13 weeks on 08/03/20 - Surgical History Past Surgical History?: No - Social History Smoking Status: Never Smoker - Medications Home Medications: Home Medications Medication Instructions Recorded Confirmed Last Taken Type Nitrofurantoin [place]/M-Cryst 100 mg PO Q12HR #14 capsule 02/17/18 10/11/18 Unknown Rx [Macrobid CAP] Vit-Fe Fumar-FA [ 1 tab PO QDAY #30 tablet 02/17/18 10/11/18 Unknown Rx Vitamin] Ibuprofen [Motrin] 600 mg PO Q8H PRN #30 tablet 10/09/18 Unknown Rx oxyCODONE /ACETAMINOPHEN [Percocet 1 tab PO Q6HR PRN #30 tablet 10/09/18 Unknown Rx 5/325] Docusate Sodium [Colace] 100 mg PO BID PRN #30 capsule 08/14/20 Unknown Rx Ferrous Sulfate [Feosol 325 MG tab] 325 mg PO BID #30 tablet 08/14/20 Unknown Rx ED Physical Exam - General Limitations: No Limitations General appearance: alert, in no apparent distress - Head Head exam: Present: atraumatic, normocephalic - Eye Eye exam: Present: normal appearance - ENT ENT exam: Present: mucous membranes moist - Neck Neck exam: Present: normal inspection - Respiratory Respiratory exam: Present: normal lung sounds bilaterally. Absent: respiratory distress - Cardiovascular Cardiovascular Exam: Present: regular rate, normal rhythm. Absent: systolic murmur, diastolic murmur, rubs, gallop - GI/Abdominal GI/Abdominal exam: Present: soft, normal bowel sounds - Extremities Exam Extremities exam: Present: normal inspection - Back Exam Back exam: Present: normal inspection - Neurological Exam Neurological exam: Present: alert, oriented X3 - Psychiatric Psychiatric exam: Present: normal affect, normal mood - Skin Skin exam: Present: warm, dry, intact, normal color. Absent: rash ED Course Vital Signs 08/14/20 08/14/20 08/14/20 19:41 19:46 21:22 Temperature 98.6 F 98.6 F Pulse Rate 107 H 80 Respiratory 20 18 Rate Blood Pressure 124/83 [Right] O2 Sat by Pulse 100 100 Oximetry ED Medical Decision Making - Lab Data Result diagrams: 08/14/20 20:30 08/14/20 20:30 - Medical Decision Making 35-year-old -[place] female presents to the emergency room complaining of dizziness chest discomfort feeling hot and heavy bleeding. Patient was seen here on 08/04/2020 and was determined that she had a demise and incomplete . Patient states since then she has had heavy bleeding. Patient states that she saw an [employer]PERINTENDENT CEMETERY last Saturday. She is reports she has had some midsternal discomfort mild sharp pain. She had nausea when she was getting overheated but that has resolved. Patient is 3 para 2 no past medical history. C urrently taking no medications. Patient states that she was having increased palpitation. Vital signs are stable repeat pulse was 80 and 100% on room air. Negative troponin EKG is within normal limits patient is sitting comfortably. I discussed with the patient and/or caregiver the rapid rule out protocol to for acute coronary syndrome and myocardial infarction and that given the findings during his ED evaluation, there is no clinical EKG or laboratory evidence of injury to the heart. I further explained that there is no current valuated protocol that can reliable risk stratify a patient into a very low risk category of less than a 1 to 2% possibility of significant cardiac disease. Therefore it remains possible that there is underlying pathology that may develop into a acute coronary syndrome at some point in the future. I discussed this with the patient and/or caregiver at length, as well as the necessary steps that may include follow-up, stress test, cardiac imaging and further lab evaluation for further assessment. The patient and/or caregiver have expressed a clear and thorough understanding and agreed to the follow up as instructed Critical care attestation.: If time is entered above; I have spent that time in minutes in the direct care of this critically ill patient, excluding procedure time. ED Disposition Clinical Impression: Mild anemia, Spontaneous miscarriage, DUB (dysfunctional uterine bleeding) Disposition: Z-07 PAT REG,NO TRIAGE Is pt being admited?: No Does the pt Need Aspirin: No Condition: Stable Instructions: Abnormal Uterine Bleeding, [id number], Menorrhagia, [id number] Additional Instructions: Your iron level and blood count is mildly low. I recommend iron sulfate and take Colace for the constipation that iron can cause. Be sure to increase your water intake. Advance your diet as tolerated. Follow-up with your SUPERINTENDENT CEMETERY. Prescriptions: Docusate Sodium [Colace] 100 mg PO BID PRN #30 capsule PRN Reason: Constipation Ferrous Sulfate [Feosol 325 MG tab] 325 mg PO BID #30 tablet Referrals: PRIMARY CARE, [Primary Care Provider] - 3-5 Days [facility] [Provider Group] - 3-5 Days Forms: Work/School Release Form(ED) Heart Score - HEART Score History: Slightly suspicious EKG: Normal Age: < 45 Risk factors: No known risk factors Troponin: < normal limit HEART Score: 0
== END 2020-08-14 22:17 | disposition left against medical advice (07) ==
LOC: ED 19:24
DX: O03.9 Complete or unspecified spontaneous abortion without complication (principal); D64.89 Other specified anemias; Z79.899 Other long term (current) drug therapy
CPT/HCPCS: 36415; 71046; 80053; 84484; 85025; 93005